=== PATIENT | male | born 1945 | race Caucasian/White ===

== ENCOUNTER → 2017-02-17 | Outpatient (CLI) | payer OTHER ==
[~2017-02-17] MED LIST: ALLO100T64 PO; ALPH300C PO; ASCO10004 PO; ATOR20TA PO; CARV-39 PO; COLC0.6T37 PO; CYAN1TAB29 PO; DEXT1DRO7 EACHEYE; FISH1CAP PO; FURO20TA3 PO; HYDR-3341 PO; HYDR12.58 PO; INSU100V8 SQ; LACT1CAP11 PO; LORA10TA62 PO; METF10002 PO; MULT-516 PO; NOVO SQ-INSULIN; OMEP-110 PO; OXYB5TAB7 PO; RIVA20TA PO; [UNRECOGNIZED DRUG - CODE] PO
[2017-02-17 11:57] LABS: BLOOD UREA NITROGEN 21 mg/dL (7-18)
[2017-02-17 12:00] LABS: ASPARTATE AMINO TRANSFERASE 21 U/L (15-37)
== END | disposition home or self-care (01) ==
LOC: STAR 10:39
PROVIDERS: ATTEND Internal Medicine Geriatric Medicine
DX: K80.50 Calculus of bile duct without cholangitis or cholecystitis without obstruction (principal); Z98.890 Other specified postprocedural states
CPT/HCPCS: 36415; 80053; 93005

== ENCOUNTER 2017-02-23 07:36 | Day surgery (SDC) | payer OTHER ==
[~2017-02-23] VITALS: Ht 185.4 cm; Wt 116.9 kg
[2017-02-23] MEDS ORDERED: LACTATED RINGERS 1,000 ML IV SCH (08:19)
[2017-02-23 08:28] VITALS: BP 178/82
[2017-02-23] MEDS ORDERED: MIDAZOLAM 1 MG/ML, 2ML ONE (09:28)
[2017-02-23] MEDS ORDERED: FENTANYL PF 100 MCG/2ML ONE (09:29)
[2017-02-23] MEDS ORDERED: SUCCINYLCHOLINE 20 MG/ML, 10ML ONE (09:30)
[2017-02-23] MEDS ORDERED: ROCURONIUM 10 MG/ML ONE (09:30)
[2017-02-23] MEDS ORDERED: ONDANSETRON 2MG/ML, 2ML ONE (09:48)
[2017-02-23] MEDS ORDERED: DEXAMETHASONE 4 MG/ML, 1ML ONE (09:49)
[2017-02-23] MEDS ORDERED: ONDANSETRON 2MG/ML, 2ML IVPush PRN (10:00)
[2017-02-23] MEDS ORDERED: OXYcodone 5 MG/5 ML ORAL.SOL UDC PO PRN (10:00)
[2017-02-23] MEDS ORDERED: METOCLOPRAMIDE 5 MG/ML, 2ML IV PRN (10:00)
[2017-02-23] MEDS ORDERED: ACETAMINOPHEN 325 MG TABLET PO PRN (10:00)
[2017-02-23] MEDS ORDERED: HYDROcodone/APAP 7.5-325MG/15ML UDC PO PRN (10:00)
[2017-02-23] MEDS ORDERED: LABETALOL 5MG/ML, 20ML IV PRN (10:00)
[2017-02-23] MEDS ORDERED: ALBUTEROL SULFATE 2.5 MG/3 ML NPPB PRN (10:00)
[2017-02-23] MEDS ORDERED: hydrALAzine 20 MG/ML, 1ML IV PRN (10:00)
[2017-02-23] MEDS ORDERED: EPHEDRINE 50 MG/ML, 1ML IVPush PRN (10:00)
[2017-02-23] MEDS ORDERED: METOPROLOL 1 MG/ML, 5ML IV PRN (10:00)
[2017-02-23] MEDS ORDERED: HYDROmorphone 1 MG/ML, 1ML IV PRN (10:00)
[2017-02-23] MEDS ORDERED: FENTANYL PF 100 MCG/2ML IV PRN (10:00)
[2017-02-23] MEDS ORDERED: GLYCOPYRROLATE 0.2MG/1ML, 5ML ONE (10:40)
[2017-02-23] MEDS ORDERED: PROPOFOL 10 MG/ML, 20ML ONE (10:40)
== END 2017-02-23 12:55 | disposition home or self-care (01) ==
LOC: OUT 07:36
PROVIDERS: ATTEND Internal Medicine Geriatric Medicine
DX: K80.50 Calculus of bile duct without cholangitis or cholecystitis without obstruction (principal); E11.9 Type 2 diabetes mellitus without complications; E11.22 Type 2 diabetes mellitus with diabetic chronic kidney disease; I12.9 Hypertensive chronic kidney disease with stage 1 through stage 4 chronic kidney disease, or unspecified chronic kidney disease; N18.9 Chronic kidney disease, unspecified; Z88.1 Allergy status to other antibiotic agents; Z88.8 Allergy status to other drugs, medicaments and biological substances
CPT/HCPCS: 43275; 74328; 82962; C1769; J0330; J1100; J2250; J2405; J2704; J3010; J7120; J3490